=== PATIENT | female | born 1945 | race American Indian/Alaskan Native ===

== ENCOUNTER 2018-11-21 07:42 | Observation (INO) | payer MEDICARE ==
[2018-11-14 10:49] LABS: Basophils % (Auto) 0.4 % (0.0-1.8); Eosinophils # (Auto) 0.1 K/mm3 (0.0-0.4); Eosinophils % (Auto) 1.2 % (0.0-4.3); Hematocrit 40.4 % (30.3-42.9); Hemoglobin 12.9 gm/dl (10.1-14.3); Lymphocytes # (Auto) 4.2 K/mm3 (1.2-5.4); Lymphocytes % (Auto) 51.6 % (13.4-35.0); Mean Corpuscular HGB Conc 32 % (30-34); Mean Corpuscular Volume 83 fl (79-97); Monocytes # (Auto) 0.5 K/mm3 (0.0-0.8); Monocytes % (Auto) 6.6 % (0.0-7.3); Platelet Count 292 K/mm3 (140-440); Red Blood Count 4.89 M/mm3 (3.65-5.03); Red Cell Distribution Width 14.3 % (13.2-15.2)
[2018-11-14 11:01] LABS: BUN/Creatinine Ratio 11; Blood Urea Nitrogen 10 mg/dL (7-17); Calcium 9.1 mg/dL (8.4-10.2); Hemolysis Index 24
--- NOTE | 2018-11-14 14:55 | Anesthesia Consultation ---
Anesthesia Consult and Med Hx Date of service: 11/14/18 - Airway ROM Head & Neck: Adequate Mental/Hyoid Distance: Adequate Mallampati Class: Class II Intubation Access Assessment: Probably Good - Pulmonary Exam CTA: Yes - Cardiac Exam Cardiac Exam: RRR - Pre-Operative Health Status ASA Pre-Surgery Classification: ASA3 Proposed Anesthetic Plan: General Nerve Block: PEC block bilateral - Pulmonary Hx Smoking: Yes (STOPPED X 50 YRS ( 1 PACK PER WEEK X 15 YRS)) Hx Sleep Apnea: No (VARGAS PRE SCREEN LOW RISK.) - Cardiovascular System Hx Hypertension: No
[~2018-11-21 07:42] MED LIST: ANCEF/STERILE WATER 2 GM/20 ML IV NR
[2018-11-21] MEDS ORDERED: LACTATED RINGERS 1,000 ML IV SCH ×2 (09:00→17:00)
[2018-11-21] MEDS ORDERED: SUBLIMAZE ONE (09:31)
[2018-11-21] MEDS ORDERED: VERSED ONE (09:31)
[2018-11-21] MEDS ORDERED: DILAUDID ONE (09:47)
[2018-11-21] MEDS ORDERED: DIPRIVAN 10 MG/ML IV ONE (09:47)
[2018-11-21] MEDS ORDERED: XYLOCAINE MPF 2% ONE (09:47)
[2018-11-21] MEDS ORDERED: DECADRON ONE (11:01)
[2018-11-21] MEDS ORDERED: ZOFRAN ONE (11:02)
[2018-11-21] MEDS ORDERED: NEO SYNEPHRINE/NS Syringe(OR USE) IV ONE (11:14)
[2018-11-21] MEDS ORDERED: NEO SYNEPHRINE ONE (11:15)
[2018-11-21] MEDS ORDERED: NACL 0.9% 100 ML ONE (11:15)
[2018-11-21] MEDS ORDERED: NACL 0.9% 1000 ML 1,000 ML ONE ×2 (11:26→14:58)
[2018-11-21] MEDS ORDERED: WATER FOR IRRIG STERILE IR ONE (11:53)
--- NOTE | 2018-11-21 12:28 | Anesthesia Day of Surgery ---
Anesthesia Day of Surgery - Day of Surgery Patient Examined: Yes Patient H&P Reviewed: Yes Patient is NPO: Yes
[2018-11-21] MEDS ORDERED: ROBINUL ONE (13:30)
--- NOTE | 2018-11-21 14:00 | Mammography Report ---
SPECIMEN RADIOGRAPH RIGHT BREAST: 11/21/18 07:42:00 CLINICAL: Right breast cancer. FINDINGS: The entire right breast with 2 localizer clips are included within the specimen. IMPRESSION: Status post right mastectomy with 2 localizer clips included within the specimen.
--- NOTE | 2018-11-21 15:13 | Mammography Report ---
SPECIMEN RADIOGRAPH LEFT BREAST: 11/21/18 07:42:00 CLINICAL: Left breast cancer with DCIS at 8 o'clock 1 cm from the nipple and at 8 o'clock 4 cm from the nipple. 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 FINDINGS: The entire breast is included in the image and there are 2 localizer clips near the nipple. IMPRESSION: Excision of the left breast with 2 localizer clips identified within the specimen.
--- NOTE | 2018-11-21 16:01 | Short Stay Summary ---
Short Stay Documentation Date of service: 11/21/18 - History H&P: obtained from office - Allergies and Medications Current Medications: Allergies No Known Allergies Allergy (Verified 03/17/17 06:12) Home Medications Medication Instructions Recorded Confirmed Last Taken Type Magnesium Hydroxide [Milk of 30 ml PO Q4H PRN #20 oral.liqd 03/21/17 11/21/18 11/18/18 Rx Magnesia] Active Medications Cefazolin Sodium (Ancef/Sterile Water 2 Gm/20 Ml) 2 gm IV PREOP NR Stop: 11/21/18 20:00 Lactated Ringer's (Lactated Ringers) 1,000 mls @ 100 mls/hr IV DIRECT CODI Last Admin: 11/21/18 08:45 Dose: 100 mls/hr Documented by: - Brief post op/procedure progress note Date of procedure: 11/21/18 Pre-op diagnosis: Bilateral breast cancer Post-op diagnosis: same Procedure: Bilateral total mastectomy with bilateral SLNB Anesthesia: GETA Findings: Bilateral total mastectomy with bilateral SLNB and negative SLNs on frozen x5 right, x4 left Surgeon: ADELAIDE SIMON Estimated blood loss: minimal Pathology: list (bilateral mastectomy with bilateral SLNS) Specimen disposition: to lab Condition: stable - Disposition Condition at discharge: Good Disposition: DC/TX-02 SHRT-TRM GEN HOSP IP Short Stay Discharge Plan Activity: other (no heavy lifting) Diet: regular Wound: other (keep incisions clean and dry and may shower in 48 hours) Follow up with: KEMI HELTON MD [Primary Care Provider] - 7 Days ADELAIDE SIMON MD [Staff Physician] - 7 Days
[2018-11-21] MEDS ORDERED: REGLAN PO PRN (16:15)
[2018-11-21] MEDS ORDERED: BENADRYL PO PRN (16:15)
[2018-11-21] MEDS ORDERED: TYLENOL PO PRN (16:15)
[2018-11-21] MEDS ORDERED: PERCOCET 5/325 PO PRN (16:15)
[2018-11-21] MEDS ORDERED: ZOFRAN IV PRN (16:15)
[2018-11-21] MEDS ORDERED: SODIUM CHLORIDE FLUSH SYRINGE 10 ML IV PRN (16:15)
--- NOTE | 2018-11-21 16:15 | Operative Report ---
Operative Report Operative Report: Date of Service: November 21, 2018 Preoperative diagnosis: Bilateral breast cancer Postoperative diagnosis: Same Procedure: Left total mastectomy with sentinel lymph node biopsy and Right total mastectomy with sentinel lymph node biopsy Surgeon: Bettye Mayo M.D. Financial Planning Consultant: Emmy Anesthesia: Gen. Findings: Bilateral breast clips present within bilateral total mastectomies. 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 Recommendations were to proceed with a left mastsectomy given location of breast cancer close to the NAC and also given its multifocality and she wished to proceed with a bilateral mastectomy. She declined PRS. She wished to proceed with the above procedure. Procedure in detail: Anesthesia placed bilateral pectoral muscle block prior to going back to the operating room. The patient was taken to the operating room and was placed supine. Gen. anesthesia was administered. Bilateral nipples were injected with radioisotope. Bilateral chest and axillas were prepped and draped in the normal sterile operative fashion. Timeout was performed. Typical mastectomy incision marking were made. Attention was taken towards the right breast first. A gamma probe was inserted into the axilla to identify the sentinel lymph node location. A skin incision was made with a 10 blade knife and dissection taken down to the subcutaneous tissues. First began raising of the superior flap to the level of the clavicle superiorly and posteriorly to the pectoralis muscle. Followed by raising of the medial flap to the level of the sternum and posteriorly to the pectoralis muscle. Followed by raising of the lateral flap to the level of the latissimus dorsi muscle and taken down posteriorly. The gamma probe was inserted into the axilla, the axillary fascia was opened and 5 sentinel lymph nodes were iden tified with the gamma probe. All remaining counts were less than 10% of the highest count. Frozen section with negative findings for malignancy. Then proceeded with raising of the inferior flap to the level of the inframammary fold taken posterior to the pectoralis muscle. The mastectomy/breast was removed from the pectoralis muscle without incident. The specimen was appropriately marked and sent to radiology with findings of breast clips present and sent to pathology. The chest wall was irrigated and suctioned. Hemostasis was obtained. A 19 Fr CARLI drain was placed. The subcutaneous tissues were approximated and closed using interrupted 3-0 Vicryl and skin closed using a running 4-0 Monocryl. Attention was taken towards the left breast. A gamma probe was inserted into the axilla to identify the sentinel lymph node location. A skin incision was made with a 10 blade knife and dissection taken down to the subcutaneous tissues. First began raising of the superior flap to the level of the clavicle superiorly and posteriorly to the pectoralis muscle. Followed by raising of the medial flap to the level of the sternum and posteriorly to the pectoralis muscle. Followed by raising of the lateral flap to the level of the latissimus dorsi muscle and taken down posteriorly. The gamma probe was inserted into the axilla, the axillary fascia was opened and 4 sentinel lymph nodes were identified with the gamma probe. All remaining counts were less than 10% of the highest count. Frozen section with negative findings for malignancy. Then proceeded with raising of the inferior flap to the level of the inframammary fold taken posterior to the pectoralis muscle. The mastectomy/breast was removed from the pectoralis muscle without incident. The specimen was appropriately marked and sent to radiology with findings of breast clips present and sent to pathology. The chest wall was irrigated and suctioned. Hemostasis was obtained. A 19 Fr CARLI drain was placed. The subcutaneous tissues were approximated and closed using interrupted 3-0 Vicryl and skin closed using a running 4-0 Monocryl. She tolerated surgery very well and was awaken from anesthesia and transported to PACU in good condition.
[2018-11-21] MEDS ORDERED: MORPHINE IV PRN (16:17)
[2018-11-21] MEDS ORDERED: NACL P/F VIAL (10 ML) 10 ML ONE (16:46)
[2018-11-21] MEDS ORDERED: METHYLENE BLUE ONE (16:46)
--- NOTE | 2018-11-21 17:53 | Post Anesthesia Evaluation ---
- Post Anesthesia Evaluation Patient Participated: Yes Airway Patent: Yes Stable Respiratory Function: Yes Nausea/Vomiting: No Temp > 96.8F: Yes Pain Manageable: Yes Adequeate Hydration: Yes Anesthesia Complications: No
[2018-11-21] MEDS: COLACE PO SCH (22:00)
--- NOTE | 2018-11-22 08:01 | Progress Note ---
Assessment and Plan This is a 73 year old lady POD#1 bilateral total mastectomy with bilateral SLNB. No acute events overnight. 1. Pain well controlled. 2. Chaka chest incisions healing well, skin well perfused, no hematoma. 3. CARLI drains to bulb suction and CARLI education. 4. OOB to hallway. 5. D/C planning for today. Subjective Date of service: 11/22/18 Principal diagnosis: Bilateral breast cancer Interval history: POD#1 Bilateral total mastectomy with bilateral SLNB Objective - Constitutional General appearance: Present: no acute distress - EENT Eyes: PERRL, EOM intact ENT: hearing intact, clear oral mucosa Ears: bilateral: normal - Neck Neck: supple, normal ROM - Respiratory Respiratory effort: normal Respiratory: bilateral: CTA - Breasts Breasts: other (chaka chest incisions clean, dry and intact; healing well, no hematoma, skin well perfused; CARLI drains to bulb suction) - Cardiovascular Rhythm: regular Extremities: no ischemia, pulses intact, pulses symmetrical - Gastrointestinal General gastrointestinal: Present: soft, non-tender, non-distended - Genitourinary Female genitourinary: deferred - Integumentary Integumentary: clear, warm, dry - Musculoskeletal Musculoskeletal: strength equal bilaterally - Neurologic Neurologic: CNII-XII intact, moves all extremities - Psychiatric Psychiatric: appropriate mood/affect, intact judgment & insight, memory intact, cooperative - Labs CBC & Chem 7: 11/14/18 10:25 11/14/18 10:25 Medications & Allergies - Medications Allergies/Adverse Reactions: Allergies No Known Allergies Allergy (Verified 03/17/17 06:12) Home Medications: Home Medications Medication Instructions Recorded Confirmed Last Taken Type Magnesium Hydroxide [Milk of 30 ml PO Q4H PRN #20 oral.liqd 03/21/17 11/21/18 11/18/18 Rx Magnesia] Active Medications: Generic Name Dose Route Start Last Admin Trade Name Freq PRN Reason Stop Dose Admin Acetaminophen 650 mg 11/21/18 16:15 Tylenol PO Q6H PRN Pain MILD(1-3)/Fever >100.5/DIAZ Diphenhydramine HCl 25 mg 11/21/18 16:15 Benadryl PO Q8H PRN Itching Docusate Sodium 100 mg 11/21/18 22:00 11/21/18 22:00 Colace PO Not Given BID CODI Lactated Ringer's 1,000 mls @ 100 mls/hr 11/21/18 09:00 11/21/18 08:45 Lactated Ringers IV 100 mls/hr DIRECT CODI Administration Lactated Ringer's 1,000 mls @ 125 mls/hr 11/21/18 17:00 Lactated Ringers IV DIRECT CODI Metoclopramide HCl 10 mg 11/21/18 16:15 Reglan PO Q6H PRN Nausea And Vomiting Morphine Sulfate 2 mg 11/21/18 16:17 11/21/18 20:08 Morphine IV 2 mg Q4H PRN Administration Pain, Moderate (4-6) Ondansetron HCl 4 mg 11/21/18 16:15 11/21/18 20:10 Zofran IV 4 mg Q8H PRN Administration N/V unrelieved by Reglan Oxycodone/Acetaminophen 1 tab 11/21/18 16:15 11/22/18 05:56 Percocet 5/325 PO 1 tab Q6H PRN Administration Pain, Moderate (4-6) Sodium Chloride 10 ml 11/21/18 16:15 Sodium Chloride Flush Syringe 10 Ml IV PRN PRN LINE FLUSH
[2018-11-22] MEDS: COLACE PO SCH (10:49)
[2018-11-22 11:20] VITALS: BP 106/57
== END 2018-11-22 11:15 | disposition home health service (06) ==
LOC: OR 07:42 → OB 16:15
PROVIDERS: ADMIT Surgery; ATTEND Surgery
DX: C50.312 Malignant neoplasm of lower-inner quadrant of left female breast (principal); C50.411 Malignant neoplasm of upper-outer quadrant of right female breast
CPT/HCPCS: 19303; 36415; 38525; 38792; 64450; 76098; 78801; 80048; 85025; 88307; 88331; 88333; 88341; 88342; 96374; 96375; A9541; G0378; J0690; J1100; J1170; J2270; J2370; J2405; J2704; J3010; J7030; J7120; Q9968; 88309; J2250

== ENCOUNTER 2019-04-29 08:32 | Emergency (ER) | payer MEDICARE, OTHER ==
[2019-04-29] MEDS ORDERED: ZOFRAN IV ONE (09:20)
[2019-04-29] MEDS ORDERED: MORPHINE IV ONE (09:20)
[2019-04-29] MEDS ORDERED: NACL 0.9% 1000 ML 1,000 ML IV ONE (09:20)
--- NOTE | 2019-04-29 09:27 | Emergency Department Report ---
ED Abdominal Pain HPI - General Chief Complaint: Abdominal Pain Stated Complaint: N/V Time Seen by Provider: 04/29/19 09:09 Source: patient Mode of arrival: Ambulatory Limitations: No Limitations - History of Present Illness Initial Comments: 73-year-old female presents to ED with 3 day history of abdominal pain, nausea or vomiting. Patient states pain is throughout her entire abdomen, however is worse in the upper abdomen, with pain radiating to the back. Patient reports associated nausea and vomiting. Denies diarrhea or constipation. States last bowel movement was yesterday and was normal. Patient reported history of pancreatitis in the past, states this feels similar. Patient says at that time it was unclear what the cause of the pancreatitis was. The patient takes no medications. Denies ETOH use. MD Complaint: abdominal pain -: days(s) (3) Location: diffuse, epigastric Radiation: back Migration to: no migration Severity: moderate Quality: cramping Consistency: constant Improves With: nothing Worsens With: nothing Associated Symptoms: nausea, vomiting. denies: diarrhea, fever, constipation, dysuria - Related Data Previous Rx's Medication Instructions Recorded Last Taken Type Magnesium Hydroxide [Milk of 30 ml PO Q4H PRN #20 oral.liqd 03/21/17 11/18/18 Rx Magnesia] HYDROcodone/APAP 5-325 [Luxora 1 each PO Q6HR PRN #30 tablet 11/22/18 Unknown Rx 5/325] Dicyclomine [Bentyl] 20 mg PO QID PRN #20 tablet 04/29/19 Unknown Rx Ondansetron [Zofran Odt] 4 mg PO Q8HR PRN #20 tab.rapdis 04/29/19 Unknown Rx Promethazine [Phenergan TAB] 25 mg PO Q6HR PRN #20 tab 04/29/19 Unknown Rx Allergies Allergy/AdvReac Type Severity Reaction Status Date / Time No Known Allergies Allergy Verified 04/29/19 08:35 ED Review of Systems ROS: Stated complaint: N/V Other details as noted in HPI Comment: All other systems reviewed and negative Constitutional: denies: chills, fever Gastrointestinal: abdominal pain, nausea, vomiting. denies: diarrhea, constipation Genitourinary: denies: dysuria, frequency ED Past Medical Hx - Past Medical History Hx Hypertension: No Hx HIV: No Additional medical history: DIVERTICULITIS - Surgical History Hx Cholecystectomy: Yes Hx Breast Surgery: Yes (CYST REMOVED LEFT BREAST) Additional Surgical History: HYSTERECTOMY - Social History Smoking Status: Former Smoker - Medications Home Medications: Home Medications Medication Instructions Recorded Confirmed Last Taken Type Magnesium Hydroxide [Milk of 30 ml PO Q4H PRN #20 oral.liqd 03/21/17 11/21/18 11/18/18 Rx Magnesia] HYDROcodone/APAP 5-325 [Luxora 1 each PO Q6HR PRN #30 tablet 11/22/18 Unknown Rx 5/325] Dicyclomine [Bentyl] 20 mg PO QID PRN #20 tablet 04/29/19 Unknown Rx Ondansetron [Zofran Odt] 4 mg PO Q8HR PRN #20 tab.rapdis 04/29/19 Unknown Rx Promethazine [Phenergan TAB] 25 mg PO Q6HR PRN #20 tab 04/29/19 Unknown Rx ED Physical Exam - General Limitations: No Limitations General appearance: alert, in no apparent distress - Head Head exam: Present: atraumatic, normocephalic - Eye Eye exam: Present: normal appearance - ENT ENT exam: Present: mucous membranes moist - Neck Neck exam: Present: normal inspection - Respiratory Respiratory exam: Present: normal lung sounds bilaterally. Absent: respiratory distress - Cardiovascular Cardiovascular Exam: Present: normal rhythm, tachycardia - GI/Abdominal GI/Abdominal exam: Present: soft, tenderness (mild diffuse tenderness, moderate epigastric tenderness). Absent: distended - Extremities Exam Extremities exam: Present: normal inspection - Neurological Exam Neurological exam: Present: alert, oriented X3, CN II-XII intact. Absent: motor sensory deficit - Psychiatric Psychiatric exam: Present: normal affect, normal mood - Skin Skin exam: Present: warm, dry, intact, normal color ED Course Vital Signs 04/29/19 04/29/19 04/29/19 08:37 09:35 12:27 Temperature 98.5 F 97.7 F Pulse Rate 119 H 84 Respiratory 16 17 17 Rate Blood Pressure 116/69 Blood Pressure 137/65 [Left] O2 Sat by Pulse 98 100 Oximetry ED Medical Decision Making - Lab Data Result diagrams: 04/29/19 09:28 04/29/19 09:28 - Radiology Data Radiology results: report reviewed, image reviewed - Medical Decision Making - acute pancreatitis - no CT findings - labs otherwise unremarkable; WBCs normal, LFTs normal - pt s/p cholecystectomy - IV fluids, zofran, morphine given in ED; pt feeling better - tachycardia resolved, vitals stable - pt tolerated PO challenge w/ juice and crackers - will d/c home at this time - advised clear liquid diet - GI f/u also advised - Differential Diagnosis pancreatitis, bowel obstruction, UTI Critical care attestation.: If time is entered above; I have spent that time in minutes in the direct care of this critically ill patient, excluding procedure time. ED Disposition Clinical Impression: Pancreatitis Disposition: DC- TO HOME OR SELFCARE Is pt being admited?: No Condition: Stable Instructions: Pancreatitis (ED), Clear Liquid Diet (ED) Prescriptions: Dicyclomine [Bentyl] 20 mg PO QID PRN #20 tablet PRN Reason: abdominal pain Promethazine [Phenergan TAB] 25 mg PO Q6HR PRN #20 tab PRN Reason: Nausea Ondansetron [Zofran Odt] 4 mg PO Q8HR PRN #20 tab.rapdis PRN Reason: Vomiting Referrals: DIANN MENDES MD [Primary Care Provider] - 3-5 Days [facility] [Provider Group] - 3-5 Days Time of Disposition: 12:17
[2019-04-29 09:57] LABS: Basophils % (Auto) 0.2 % (0.0-1.8); Eosinophils % (Auto) 0.3 % (0.0-4.3); Hematocrit 38.5 % (30.3-42.9); Hemoglobin 13.1 gm/dl (10.1-14.3); Lymphocytes # (Auto) 2.8 K/mm3 (1.2-5.4); Lymphocytes % (Auto) 28.7 % (13.4-35.0); Mean Corpuscular HGB Conc 34 % (30-34); Mean Corpuscular Volume 80 fl (79-97); Monocytes # (Auto) 0.5 K/mm3 (0.0-0.8); Monocytes % (Auto) 5.6 % (0.0-7.3); Platelet Count 322 K/mm3 (140-440); Red Blood Count 4.82 M/mm3 (3.65-5.03); Red Cell Distribution Width 14.8 % (13.2-15.2)
[2019-04-29 09:59] LABS: Calcium 9.4 mg/dL (8.4-10.2)
[2019-04-29 10:19] LABS: Bacteria,Urine 1+ /HPF (Negative); Bilirubin,Urine NEG (Negative); Blood,Urine MOD (Negative); Color,Urine Amber (Yellow); Hyaline Casts,Urine 1 /LPF; Mucus,Urine FEW /HPF
--- NOTE | 2019-04-29 10:49 | Cat Scan Report ---
CT ABDOMEN PELVIS WITH CONTRAST: HISTORY: abdominal pain. COMPARISON: 03/17/17. TECHNIQUE: Helical CT in 1.25mm intervals following IV contrast. Sagittal and coronal reconstructions. FINDINGS: Lung bases: Normal. Liver: There is mild diffuse fatty infiltration throughout the liver. 1.6 cm cyst in the left hepatic lobe is noted. Biliary system: Cholecystectomy. No biliary dilatation. Pancreas: The pancreatic parenchyma is unremarkable. Inflammatory changes surrounding the pancreas resolved since the previous exam. No obvious acute inflammation or mass. Pancreas divisum is suggested. Spleen: Normal. Kidneys/ureters/bladder: There are a few scattered simple cysts in both kidneys. No evidence for mass, large calculus or hydronephrosis. The ureters and bladder are unremarkable. Adrenal glands: Normal. Aorta: Normal. Intestines: Mild diverticulosis of the colon is identified. No evidence for obstruction or focal inflammation. Appendix: Not confidently identified. Pelvic viscera: Hysterectomy changes. Ascites: None. Adenopathy: None. Musculoskeletal: Moderate thoracolumbar spondylosis. IMPRESSION: No acute inflammatory process is appreciated in the abdomen or pelvis. Other chronic findings as outlined above.
[2019-04-29 12:27] VITALS: BP 137/65
== END 2019-04-29 12:30 | disposition home or self-care (01) ==
LOC: ED 08:32
DX: K85.90 Acute pancreatitis without necrosis or infection, unspecified (principal); Z90.49 Acquired absence of other specified parts of digestive tract; Z90.710 Acquired absence of both cervix and uterus; Z87.891 Personal history of nicotine dependence
CPT/HCPCS: 36415; 74177; 80053; 81001; 83690; 85025; 96361; 96374; 99284; J2405; J7030; Q9967; J2270

== ENCOUNTER 2019-04-30 04:00 | Emergency (ER) | payer MEDICARE, OTHER ==
[2019-04-30 06:38] LABS: Basophils % (Auto) 0.2 % (0.0-1.8); Hematocrit 37.3 % (30.3-42.9); Hemoglobin 12.2 gm/dl (10.1-14.3); Lymphocytes # (Auto) 1.8 K/mm3 (1.2-5.4); Lymphocytes % (Auto) 18.5 % (13.4-35.0); Mean Corpuscular HGB Conc 33 % (30-34); Mean Corpuscular Volume 81 fl (79-97); Monocytes # (Auto) 0.5 K/mm3 (0.0-0.8); Monocytes % (Auto) 5.3 % (0.0-7.3); Platelet Count 311 K/mm3 (140-440); Red Blood Count 4.58 M/mm3 (3.65-5.03); Red Cell Distribution Width 15.2 % (13.2-15.2)
[2019-04-30 06:59] LABS: Albumin 3.8 g/dL (3.9-5); Calcium 9.3 mg/dL (8.4-10.2)
[2019-04-30] MEDS ORDERED: NACL 0.9% 1000 ML 1,000 ML IV ONE (07:10)
[2019-04-30] MEDS ORDERED: ZOFRAN IV ONE (07:10)
[2019-04-30] MEDS ORDERED: BENADRYL IV ONE (07:11)
[2019-04-30] MEDS ORDERED: REGLAN IV ONE (07:11)
--- NOTE | 2019-04-30 07:13 | Emergency Department Report ---
ED General Adult HPI - General Chief complaint: Abdominal Pain Stated complaint: ABD PAIN/EMESIS Time Seen by Provider: 04/30/19 07:02 Source: patient Mode of arrival: Ambulatory Limitations: No Limitations - History of Present Illness Initial comments: The patient presents to the emergency department with a chief complaint of nausea vomiting and abdominal cramping 3 days. Patient was seen in the ED yesterday and received medications along with a CAT scan and blood work. Patient denies any known sick contacts. Patient also denies chest pain, Str asberg, or headache. Patient states she is not able to keep down the medications that were given to her yesterday. -: Gradual Location: abdomen Radiation: non-radiation Severity scale (0 -10): 2 Quality: other (cramping) Consistency: constant Improves with: none Worsens with: none Associated Symptoms: denies other symptoms - Related Data Previous Rx's Medication Instructions Recorded Last Taken Type RX: Magnesium Hydroxide [Milk of 30 ml PO Q4H PRN #20 oral.liqd 03/21/17 11/18/18 Rx Magnesia] HYDROcodone/APAP 5-325 [[place] 1 each PO Q6HR PRN #30 tablet 11/22/18 Unknown Rx 5/325] Dicyclomine [Bentyl] 20 mg PO QID PRN #20 tablet 04/29/19 Unknown Rx Ondansetron [Zofran Odt] 4 mg PO Q8HR PRN #20 tab.rapdis 04/29/19 Unknown Rx Promethazine [Phenergan TAB] 25 mg PO Q6HR PRN #20 tab 04/29/19 Unknown Rx Promethazine [Phenergan] 25 mg [place] Q6HR PRN #15 supp.rect 04/30/19 Unknown Rx Allergies Allergy/AdvReac Type Severity Reaction Status Date / Time No Known Allergies Allergy Verified 04/29/19 08:35 ED Review of Systems ROS: Stated complaint: ABD PAIN/EMESIS Other details as noted in HPI Comment: All other systems reviewed and negative Constitutional: denies: chills, fever Eyes: denies: eye pain, eye discharge, vision change ENT: denies: ear pain, throat pain Respiratory: denies: cough, shortness of breath, wheezing Cardiovascular: denies: chest pain, palpitations Endocrine: no symptoms reported Gastrointestinal: nausea, vomiting. denies: abdominal pain, diarrhea Genitourinary: denies: urgency, dysuria, discharge Musculoskeletal: denies: back pain, joint swelling, arthralgia Skin: denies: rash, lesions Neurological: denies: headache, weakness, paresthesias Psychiatric: denies: anxiety, depression Hematological/Lymphatic: denies: easy bleeding, easy bruising ED Past Medical Hx - Past Medical History Hx Hypertension: No Hx of Cancer: Yes (breats) Hx HIV: No Additional medical history: DIVERTICULITIS - Surgical History Past Surgical History?: Yes Hx Cholecystectomy: Yes Hx Breast Surgery: Yes (CYST REMOVED LEFT BREAST, Mastectomy) Additional Surgical History: HYSTERECTOMY - Social History Smoking Status: Never Smoker Substance Use Type: None - Medications Home Medications: Home Medications Medication Instructions Recorded Confirmed Last Taken Type RX: Magnesium Hydroxide [Milk of 30 ml PO Q4H PRN #20 oral.liqd 03/21/17 11/21/18 11/18/18 Rx Magnesia] HYDROcodone/APAP 5-325 [[place] 1 each PO Q6HR PRN #30 tablet 11/22/18 Unknown Rx 5/325] Dicyclomine [Bentyl] 20 mg PO QID PRN #20 tablet 04/29/19 Unknown Rx Ondansetron [Zofran Odt] 4 mg PO Q8HR PRN #20 tab.rapdis 04/29/19 Unknown Rx Promethazine [Phenergan TAB] 25 mg PO Q6HR PRN #20 tab 04/29/19 Unknown Rx Promethazine [Phenergan] 25 mg [place] Q6HR PRN #15 supp.rect 04/30/19 Unknown Rx ED Physical Exam - General Limitations: No Limitations (probably have is) General appearance: alert, in no apparent distress - Head Head exam: Present: atraumatic, normocephalic - Eye Eye exam: Present: normal appearance, PERRL, EOMI - ENT ENT exam: Present: mucous membranes moist - Neck Neck exam: Present: normal inspection - Respiratory Respiratory exam: Present: normal lung sounds bilaterally. Absent: respiratory distress - Cardiovascular Cardiovascular Exam: Present: regular rate, normal rhythm. Absent: systolic murmur, diastolic murmur, rubs, gallop - GI/Abdominal GI/Abdominal exam: Present: soft, normal bowel sounds. Absent: distended, tenderness - Extremities Exam Extremities exam: Present: normal inspection - Back Exam Back exam: Present: normal inspection - Neurological Exam Neurological exam: Present: alert, oriented X3, CN II-XII intact (was going along with). Absent: motor sensory deficit (assessment and WILL not is) - Psychiatric Psychiatric exam: Present: normal affect, normal mood - Skin Skin exam: Present: warm, dry, intact, normal color. Absent: rash ED Course Vital Signs 04/30/19 04:10 Temperature 97.9 F Pulse Rate 92 H Respiratory 16 Rate Blood Pressure 116/65 O2 Sat by Pulse 96 Oximetry ED Medical Decision Making - Lab Data Result diagrams: 04/30/19 06:25 04/30/19 06:25 He will word ND Lab Results 04/30/19 04/30/19 Range/Units 06:25 06:25 WBC 9.7 (4.5-11.0) K/mm3 RBC 4.58 (3.65-5.03) M/mm3 Hgb 12.2 (10.1-14.3) gm/dl Hct 37.3 (30.3-42.9) % MCV 81 (79-97) fl MCH 27 L (28-32) pg MCHC 33 (30-34) % RDW 15.2 (13.2-15.2) % Plt Count 311 (140-440) K/mm3 Lymph % (Auto) 18.5 (13.4-35.0) % [place] % (Auto) 5.3 (0.0-7.3) % Eos % (Auto) 0.0 (0.0-4.3) % Baso % (Auto) 0.2 (0.0-1.8) % Lymph # 1.8 (1.2-5.4) K/mm3 [place] # 0.5 (0.0-0.8) K/mm3 Eos # 0.0 (0.0-0.4) K/mm3 Baso # 0.0 (0.0-0.1) K/mm3 Seg Neutrophils % 76.0 H (40.0-70.0) % Seg Neutrophils # 7.4 (1.8-7.7) K/mm3 Sodium 142 (137-145) mmol/L Potassium 3.8 (3.6-5.0) mmol/L Chloride 103.7 (98-107) mmol/L Carbon Dioxide 24 (22-30) mmol/L Anion Gap 18 mmol/L BUN 12 (7-17) mg/dL Creatinine 1.1 (0.7-1.2) mg/dL Estimated GFR 59 ml/min BUN/Creatinine Ratio 11 % Glucose 99 (65-100) mg/dL Calcium 9.3 (8.4-10.2) mg/dL Total Bilirubin 0.40 (0.1-1.2) mg/dL AST 17 (5-40) units/L ALT 13 (7-56) units/L Alkaline Phosphatase 86 (35-129) units/L Total Protein 8.0 (6.3-8.2) g/dL Albumin 3.8 L (3.9-5) g/dL Albumin/Globulin Ratio 0.9 % Lipase 463 H (13-60) units/L CASE - Medical Decision Making The patient improved with medications Imaging and laboratory values reviewed from her previous visit which was yesterday Critical care attestation.: If time is entered above; I have spent that time in minutes in the direct care of this critically ill patient, excluding procedure time. ED Disposition Clinical Impression: Nausea & vomiting Disposition: DC-01 TO HOME OR SELFCARE Is pt being admited?: No Does the pt Need Aspirin: No Condition: Stable Instructions: Acute Nausea and Vomiting (ED) Additional Instructions: return if worse Prescriptions: Promethazine [Phenergan] 25 mg [place] Q6HR PRN #15 supp.rect PRN Reason: Nausea Referrals: RADHA SOSA MD [Primary Care Provider] - 3-5 Days [facility], [Provider Group] - 3-5 Days [facility] [Provider Group] - 3-5 Days Time of Disposition: 08:57
[2019-04-30 09:37] VITALS: BP 125/69
== END 2019-04-30 09:36 | disposition home or self-care (01) ==
LOC: ED 04:00
DX: R11.2 Nausea with vomiting, unspecified (principal); R10.9 Unspecified abdominal pain; I10 Essential (primary) hypertension; Z90.710 Acquired absence of both cervix and uterus; Z85.3 Personal history of malignant neoplasm of breast
CPT/HCPCS: 36415; 80053; 83690; 85025; 96361; 96374; 96375; 99283; J1200; J2405; J2765; J7030